=== PATIENT | female | born 2000 | race American Indian/Alaskan Native ===

== ENCOUNTER 2018-10-22 03:46 | Inpatient (IN) | payer OTHER ==
[~2018-10-22] VITALS: Ht 157.5 cm; Wt 3.2 kg
[2018-10-22] MEDS ORDERED: AMPICILLIN TRI500 MG PO (03:51)
[2018-10-22] MEDS ORDERED: PRENATAL 19 TA1 EAC1 PO (03:52)
== END 2018-10-25 14:48 | disposition home or self-care (01) | DRG 788 ==
LOC: OBS/DEL 03:46 → LDR 07:59 → OB/GYN 07:59 → OBS/DEL 07:59 → O/R 07:59 → OB/GYN 15:16
PROVIDERS: Specialist; ADMIT Specialist
PROC: 4A0HXFZ Measurement of Products of Conception, Cardiac Rhythm, External Approach (ICD-10-PCS; 2018-10-22)
PROC: 10D00Z1 Extraction of Products of Conception, Low, Open Approach (ICD-10-PCS; principal; 2018-10-22 12:00)
DX: O82 Encounter for cesarean delivery without indication (principal); Z37.0 Single live birth; O62.1 Secondary uterine inertia; O33.8 Maternal care for disproportion of other origin; Z3A.37 37 weeks gestation of pregnancy; Z22.330 Carrier of Group B streptococcus

== ENCOUNTER 2019-12-15 13:11 | Outpatient (CLI) | payer OTHER ==
[~2019-12-15 13:11] MED LIST: AMPICILLIN TRI500 MG PO; PRENATAL 19 TA1 EAC1 PO
== END 2019-12-15 17:30 | disposition home or self-care (01) ==
LOC: OBS/DEL 13:11
PROVIDERS: ATTEND Specialist
DX: O26.892 Other specified pregnancy related conditions, second trimester (principal); R10.2 Pelvic and perineal pain

== ENCOUNTER → 2020-02-20 15:35 | Outpatient (CLI) | payer OTHER ==
[~2020-02-20 15:35] MED LIST changes: +PRENATAL TABLE1 EAC1 PO
== END | disposition home or self-care (01) ==
LOC: OBS/DEL 15:35
PROVIDERS: ATTEND Specialist
DX: O26.893 Other specified pregnancy related conditions, third trimester (principal); R10.2 Pelvic and perineal pain

== ENCOUNTER 2020-03-02 03:46 | Inpatient (IN) | payer OTHER ==
[~2020-03-02] VITALS: Ht 157.5 cm; Wt 3.2 kg
[2020-03-05] MEDS ORDERED: OXYC1TAB9 PO (12:16)
[2020-03-05] MEDS ORDERED: PRENATAL TABLE1 EAC1 PO (12:16)
== END 2020-03-05 14:22 | disposition home or self-care (01) | DRG 788 ==
LOC: O/R 03:46 → LDR 03:46 → O/R 13:43 → OB/GYN 14:36
PROVIDERS: ADMIT Specialist; ATTEND Specialist
PROC: 4A1HXFZ Monitoring of Products of Conception, Cardiac Rhythm, External Approach (ICD-10-PCS; 2020-03-02)
PROC: 10D00Z1 Extraction of Products of Conception, Low, Open Approach (ICD-10-PCS; principal; 2020-03-02 07:00)
DX: O34.211 Maternal care for low transverse scar from previous cesarean delivery (principal); Z3A.38 38 weeks gestation of pregnancy; Z37.0 Single live birth; Z20.828 Contact with and (suspected) exposure to other viral communicable diseases

== ENCOUNTER 2021-09-01 13:34 | Emergency (ER) | payer OTHER ==
[~2021-09-01] VITALS: Ht 160 cm; Wt 77.1 kg
[~2021-09-01 13:34] MED LIST changes: +OXYC1TAB9 PO
== END 2021-09-01 17:47 | disposition home or self-care (01) ==
LOC: ER 13:34
DX: J02.9 Acute pharyngitis, unspecified (principal); Z20.822 Contact with and (suspected) exposure to COVID-19